=== PATIENT | female | born 1980 | race Caucasian/White ===

== ENCOUNTER 2017-05-01 13:01 | Emergency (ER) | payer OTHER ==
[~2017-05-01 13:01] MED LIST: ADDERALL10 MG PO; ALPRAZOLAM; AMBIEN; FLEXERIL10 MG PO; HYDROCODON-ACE1 EAC7 PO; MEDROL4 MG/DOSE- PO; MOTRIN400 MG; MOTRIN600 M2 PO; PHENERGAN PO; ULTRAM PO; VICODIN 5/1 TAB 5/50 PO; VOLTAREN75 MG PO; XANAX2 MG PO
[2017-05-01 14:06] LABS: URINE SOURCE CLEAN CATCH
[2017-05-01 14:08] LABS: URINE APPEARANCE SL CLOUDY; URINE BILIRUBIN NEG (NEG); URINE BLOOD 1+ (NEG); URINE COLOR YELLOW; URINE GLUCOSE NEG (NORM); URINE KETONE NEG (NEG); URINE LEUKOCYTE ESTERASE NEG (NEG); URINE NITRATE NEG (NEG); URINE PROTEIN NEG (NEG); URINE SPECIFIC GRAVITY 1.025 (1.003-1.035); URINE UROBILINOGEN 0.2 MG/DL (NORM)
[2017-05-01 14:09] LABS: MICRO INDICATED? YES
[2017-05-01 14:24] LABS: URINE BACTERIA NEG (NEG); URINE RBC 0-2 /[HPF] (0-2); URINE SQUAMOUS EPITHELIAL CELL MANY /[HPF]; URINE WBC 0-2 /[HPF] (0-5)
== END 2017-05-01 15:01 | disposition home or self-care (01) ==
LOC: SED 13:01
PROVIDERS: Physician Assistant
DX: H10.31 Unspecified acute conjunctivitis, right eye (principal); J02.9 Acute pharyngitis, unspecified; G43.909 Migraine, unspecified, not intractable, without status migrainosus; F90.9 Attention-deficit hyperactivity disorder, unspecified type; F41.9 Anxiety disorder, unspecified; Z90.49 Acquired absence of other specified parts of digestive tract; F17.210 Nicotine dependence, cigarettes, uncomplicated
CPT/HCPCS: 81003; 87651; 96361; 96365; 96375; 99283; J0780; J1200; J1885; J2405

== ENCOUNTER 2017-06-08 00:31 | Emergency (ER) | payer OTHER ==
[~2017-06-08] VITALS: Ht 167.6 cm; Wt 68.0 kg
== END 2017-06-08 01:35 | disposition home or self-care (01) ==
LOC: CED 00:31
DX: F19.129 Other psychoactive substance abuse with intoxication, unspecified (principal); F32.9 Major depressive disorder, single episode, unspecified; F41.9 Anxiety disorder, unspecified; Z90.49 Acquired absence of other specified parts of digestive tract; Z98.51 Tubal ligation status; F17.210 Nicotine dependence, cigarettes, uncomplicated
CPT/HCPCS: 99284